=== PATIENT | female | born 2000 | race Caucasian/White ===

== ENCOUNTER → 2025-05-17 | Day surgery (SDC) | payer OTHER, MEDICAID ==
[~2025-05-17] VITALS: Ht 149.9 cm; Wt 39.5 kg
[~2025-05-17] MED LIST: AMPICILLIN SODIUM 2 GM/NS 100 ML IV ONE; CENO1TAB PO; CLOBAZAM PO; DEXAMETHASONE SOD PHOS 4 MG/ML VIAL ONE; FAMO20 PO; LIDOCAINE/PF 2% 5 ML VIAL ONE; LINA145C PO; ONDANSETRON HCL 4 MG/2 ML VIAL ONE; PROPOFOL 1% 20 ML VIAL IVP ONE; RINGERS SOLUTION,LACTATED 1,000 ML IV ONE; ROCURONIUM BROMIDE 10 MG/ML 5 ML VIAL ONE; SUGAMMADEX SODIUM 200 MG/2 ML VIAL IVP ONE; [UNRECOGNIZED DRUG - CODE] PO
[2025-05-17 07:37] LABS: PLATELET COUNT (AUTO) 334 K/uL (150-450); RED BLOOD CELL COUNT(AUTO) 4.46 MIL/uL (4.00-5.20); RED CELL DISTRIBUTION WIDTH 14.8 % (11.5-14.5); WHITE BLOOD COUNT (AUTO) 4.0 K/uL (4.5-11.0)
[2025-05-17 07:55] LABS: CALCIUM, TOTAL 8.4 mg/dL (8.8-10.5); CREATININE 0.29 mg/dL (0.60-1.30); GLOMERULAR FILTR. RATE CALC > 60 mL/min (>60); GLUCOSE,RANDOM 86 mg/dL (70-110); SODIUM SERUM 139 mmol/L (136-145); UREA NITROGEN, BLOOD 10 mg/dL (7-18)
[2025-05-17 08:01] LABS: ASPARTATE AMINOTRANSFERASE 21 U/L (15-37); TOTAL PROTEIN, SERUM 7.5 g/dL (6.4-8.2)
== END | disposition home or self-care (01) ==
LOC: SDS 06:30
PROVIDERS: ATTEND Dentist General Practice
DX: K02.9 Dental caries, unspecified (principal); K05.20 Aggressive periodontitis, unspecified; K03.6 Deposits [accretions] on teeth; G80.9 Cerebral palsy, unspecified; Z79.899 Other long term (current) drug therapy; Z98.890 Other specified postprocedural states; Z88.8 Allergy status to other drugs, medicaments and biological substances
CPT/HCPCS: 41899; 71045; 80053; 84703; 85025; 85610; 85730; 36415; 93005; J0290; J7120; J1100; J2405; J2704; J3490